=== PATIENT | female | born 1985 | race Caucasian/White ===

== ENCOUNTER 2022-10-01 20:15 | Emergency (ER) | payer SELFPAY ==
[~2022-10-01] VITALS: Ht 160 cm; Wt 73.0 kg
[2022-10-01] MEDS ORDERED: diphenhydrAMINE 50 MG/ML INJ (BENADRYL) IV STA (20:29)
[2022-10-01] MEDS ORDERED: FAMOTIDINE 20MG/2ML IV (PEPCID) IV STA (20:29)
[2022-10-01] MEDS ORDERED: LACTATED RINGERS 1,000 ML IV ONE (20:30)
--- NOTE | 2022-10-01 20:57 | ED General ---
General Chief Complaint: Allergic Reaction Stated Complaint: ALLERGIC REACTION Source of Information: Patient History of Present Illness Date Seen by Provider: October 01, 2022 Time Seen by Provider: 20:25 Initial Comments PT ARRIVES VIA POV FROM [facility] PT STATES SHE IS ALLERGIC TO CINNAMON, AND ATE SALMON WITH A SAUCE THAT HAD CINNAMON IN IT ABOUT AN HOUR AGO C/O "HOT FLASHES" AND CHEST TIGHTNESS NO RASH OR ITCHING OR SWELLING NO COUGH OR SHORTNESS OF BREATH STATES THIS IS SAME REACTION SHE HAS HAD TO CINNAMON IN THE PAST TOOK BENADRYL 30 MINUTES AGO. NO CHRONIC MEDICAL PROBLEMS AND DOES NOT TAKE ANY MEDICATIONS PT HAS HAD PRIOR HYSTERECTOMY SHE HAS HAD COVID VACCINE X 1. [place] [facility] [place] Home Medications Allergies Coded Allergies: cinnamon (Verified Allergy, Intermediate, 10/01/22) Patient Home Medication List Home Medication List Reviewed: Yes Review of Systems Review of Systems Constitutional: see HPI, malaise, weakness EENTM: no symptoms reported Respiratory: no symptoms reported Cardiovascular: see HPI Gastrointestinal: no symptoms reported Genitourinary: no symptoms reported Musculoskeletal: no symptoms reported Skin: no symptoms reported Psychiatric/Neurological: No Symptoms Reported Hematologic/Lymphatic: No Symptoms Reported Immunological/Allergic: no symptoms reported Past Mufbsjm-Smwkmn-Hczgqg Hx Patient Social History Tobacco Use?: Yes Tobacco type used: Cigarettes Smoking Status: Current Everyday Smoker Use of E-Cig and/or Vaping dev: No Substance use?: No Alcohol Use?: No Pt feels they are or have been: No Immunizations Up To Date Influenza Vaccine Up-to-Date: Yes; Up-to-Date First/Initial COVID19 Vaccinat: X1 Past Medical History Surgery/Hospitalization HX: HYST, C SECT X 2, TONSILECTOMY Physical Exam Vital Signs Vital Signs - First Documented Capillary Refill : Height, Weight, BMI Height: '" Weight: lbs. oz. kg; BMI Method: General Appearance: No Apparent Distress, WD/WN, Other (PT IS VERY DRAMATIC, WANTS WHEELCHAIR ON ARRIVAL, KEEPS EYES CLOSED, TALKS WITH FORCED "STUTTERING" , ACTS "LETHARGIC") HEENT: PERRL/EOMI, TMs Normal, Normal ENT Inspection, Pharynx Normal, Other (NO SWELLING TO LIPS OR INTRA-ORAL MUCOSA) Neck: Full Range of Motion, Normal Inspection, Non Tender, Supple Respiratory: Normal Breath Sounds, No Accessory Muscle Use, No Respiratory Distress Cardiovascular: Regular Rate, Rhythm, No Murmur Gastrointestinal: Non Tender, Soft Back: No CVA Tenderness Extremity: Normal Capillary Refill, Normal Inspection, Normal Range of Motion, Non Tender, No Calf Tenderness, No Pedal Edema Neurologic/Psychiatric: Alert, Oriented x3, No Motor/Sensory Deficits, weld inspector II- XII Norm as Tested Skin: Normal Color, Warm/Dry; No Rash Progress/Results/Core Measures Suspected Sepsis SIRS Temperature: Pulse: Respiratory Rate: Blood Pressure / Mean: Results/Orders My Orders Orders - OSIRIS MARTINEZ DO Ed Iv/Invasive Line Start (10/01/22 20:29) Monitor-Rhythm Ecg Trace Only (10/01/22 20:29) Ed Iv/Invasive Line Start (10/01/22 20:29) Lactated Ringers (Lr 1000 Ml Iv Solution (10/01/22 20:30) Famotidine Injection (Pepcid Injection) (10/01/22 20:29) Diphenhydramine Injection (Benadryl Inje (10/01/22 20:29) Dexamethasone Injection (Decadron Inje (10/01/22 20:30) Medications Given in ED Current Medications Medications Dose Ordered Sig/Shala Route Start Time Stop Time Status Last Admin Dose Admin Dexamethasone Sodium Phosphate 20 mg ONCE ONCE IV 10/01/22 20:30 10/01/22 20:31 DC 10/01/22 20:52 20 MG Lactated Ringer's 1,000 ml @ 0 mls/hr Q0M ONCE IV 10/01/22 20:30 10/01/22 20:31 DC 10/01/22 20:48 999 MLS/HR Vital Signs/I&O 10/01/22 10/01/22 10/01/22 20:25 20:25 21:53 Temp 36.6 Pulse 89 86 Resp 22 16 B/P (MAP) 138/86 (103) 101/64 Pulse Ox 100 100 O2 Delivery Room Air Room Air Room Air Capillary Refill : Progress Note : Progress Note GIVEN: -DECADRON -BENADRYL -PEPCID ALL SYMPTOMS RESOLVED VITALS STABLE PT ABLE TO AMBULATE OUT OF ER ON HER OWN NO PRIOR VISITS HERE Departure Impression Primary Impression: ADVERSE REACTION TO CINNAMON Disposition: HOME, SELF-CARE Condition: Stable Departure-Patient Inst. Decision time for Depature: 21:32 Patient Instructions: Food Allergy Add. Discharge Instructions: HOME, REST LOTS OF CLEAR LIQUIDS YOU MAY TAKE BENADRYL 50 MG EVERY 4 HOURS NEEDED All discharge instructions reviewed with patient and/or family. Voiced understanding. OSIRIS MARTINEZ DO October 01, 2022 20:57
[2022-10-01 21:53] VITALS: BP 101/64
== END 2022-10-01 21:55 | disposition home or self-care (01) ==
LOC: ER 20:17
DX: T78.1XXA Other adverse food reactions, not elsewhere classified, initial encounter (principal); F17.210 Nicotine dependence, cigarettes, uncomplicated; Z28.311 Partially vaccinated for COVID-19
CPT/HCPCS: 93041